=== PATIENT | male | born 1980 | race Two or more races ===

== ENCOUNTER 2016-06-26 12:04 | Emergency (ER) | payer OTHER ==
--- NOTE | 2016-06-26 13:33 | EDDOCDS ---
Physician Documentation [facility] Name: Marty Pitt Age: 35 yrs Sex: Male : 1980 Arrival Date: 06/26/2016 Time: 12:04 Bed TR4 Private MD: Pepper Daniels NP Disposition: 06/26/16 13:04 Discharged to Home/Self Care. Impression: Impacted cerumen, left ear. - Condition is Stable. - Discharge Instructions: Cerumen Impaction. - Medication Reconciliation, Local Pharmacy Hours form. - Follow up: Pepper Daniels; When: Call to arrange an appointment; Reason: Further diagnostic work-up, Recheck today's complaints, Continuance of care. - Problem is new. - Symptoms are unchanged. Historical: - Allergies: No known drug Allergies; - Home Meds: 1. none - PMHx: none; - PSHx: right kidney surgery; - Social history: Smoking status: Patient states former smoker of tobacco. No barriers to communication noted, The patient speaks fluent Colombian. - Family history: Not pertinent. - : The pt / caregiver states he / she is not on anticoagulants. Home medication list is obtained from the patient. - Exposure Risk Screening:: None identified. Vital Signs: 06/26 12:06 BP 159 / 89; Pulse 95; Resp 18 S; Temp 98.5(O); Pulse Ox 94% on R/A; Weight 99.79 kg / gr2 220 lbs (R); Height 5 ft. 7 in. (170.18 cm) (R); Pain 7/10; 13:10 BP 144 / 100; Pulse 89; Resp 18; Temp 98.9(TE); Pulse Ox 97% on R/A; Pain 0/10; mdr 12:06 Body Mass Index 34.46 (99.79 kg, 170.18 cm) gr2 MDM: 13:02 Financial registration complete. lg 13:11 [facility] Payment Agreement was scanned into [employer] and attached to record. lg Signatures: Eitan Matson RN RN dwg Jobson, Karen, RN RN kpj Ganter, LoriLee, Reg Reg lg Gary Montana PA PA btw The chart was reviewed and I authenticate all verbal orders and agree with the evaluation and treatment provided.Attachments: 13:11 [facility] Payment Agreement lg MTDD
--- NOTE | 2016-06-26 13:33 | EDDOCDS ---
Nurse's Notes [facility] Name: Marty Pitt Age: 35 yrs Sex: Male : 1980 Arrival Date: 06/26/2016 Time: 12:04 Bed TR4 Private MD: Pepper Daniels NP Diagnosis: Impacted cerumen, left ear Presentation: 06/26 12:11 Presenting complaint: Patient states: left ear ache x 3 days. Adult Sepsis Screening: [facility] The patient does not have new or worsening altered mentation. Patient's respiratory rate is less than 22. Systolic blood pressure is greater than 100. Patient has a qSOFA score of 0- Negative Sepsis Screen. Suicide/Homicide risk assessment- the patient denies having any suicidal and/or homicidal ideations and does not present with any other emotional, behavioral or mental health complaints. Status: Patient is not a food service associate or dependent. Transition of care: patient was not received from another setting of care. 12:11 Acuity: SIL Level 5 [facility] 12:11 Method Of Arrival: Walkin/Carried/Asstd [facility] Triage Assessment: 12:12 General: Appears in no apparent distress, Behavior is appropriate for age, pleasant. kpj Pain: Location: left ear Pain currently is 5 out of 10 on a pain scale. Pt Declines HIV testing. Neurological: Level of Consciousness is awake, alert, Oriented to person, place, time. EENT: Reports pain in left ear Pain is 5 out of 10 on a pain scale. Respiratory: Airway is patent Respiratory effort is even, unlabored. Derm: Skin is pink, warm & dry. Historical: - Allergies: No known drug Allergies; - Home Meds: 1. none - PMHx: none; - PSHx: right kidney surgery; - Social history: Smoking status: Patient states former smoker of tobacco. No barriers to communication noted, The patient speaks fluent Omani. - Family history: Not pertinent. - : The pt / caregiver states he / she is not on anticoagulants. Home medication list is obtained from the patient. - Exposure Risk Screening:: None identified. Screenin:27 Screening information is obtained from the patient. Primary language is Omani. Fall dwg risk: No risks identified. Assistance ADL's: requires no assistance with activities of daily living. Abuse/DV Screen: The patient / caregiver reports he/she is: not in a situation that causes fear, pain or injury. Nutritional screening: No deficits noted. Advance Directives: Currently, there is no health care proxy. There is no active DNR order. There is no living will. There is no Power of Configuration Management Advisor. Advance directive information has not previously been placed in an [facility] medical record. Further advance directive information is declined. home support is adequate. Assessment: 13:28 The patient / caregiver is instructed regarding the plan of care and ED course. [facility] Physical assessment to be completed by [facility]LENA/[facility]. Vital Signs: 12:06 BP 159 / 89; Pulse 95; Resp 18 S; Temp 98.5(O); Pulse Ox 94% on R/A; Weight 99.79 kg gr2 (R); Height 5 ft. 7 in. (170.18 cm) (R); Pain 7/10; 13:10 BP 144 / 100; Pulse 89; Resp 18; Temp 98.9(TE); Pulse Ox 97% on R/A; Pain 0/10; mdr 12:06 Body Mass Index 34.46 (99.79 kg, 170.18 cm) gr2 Vitals: 12:06 Log In Time: June 26, 2016 at 12:06. gr2 ED Course: 12:05 Patient visited by Paula Alvarenga. gr2 12:05 Pepper Daniels is Private Physician. gr2 12:05 Patient moved to Waiting gr2 12:10 Patient visited by Paula Alvarenga. gr2 12:10 Patient moved to Pre RCE gr2 12:12 Triage Initiated kpj 12:32 Patient moved to Triage 3 mdr 12:48 Gary Montana PA is PHCP. btw 12:48 Jacey Graff MD is Attending Physician. btw 12:48 Patient visited by Gary Montana PA. btw 13:04 Pepper Daniels is Referral Physician. btw 13:10 Patient name changed from Marty\S\\S\[place]\S\ to Marty\S\Ray\S\Sweetie. EDMS 13:11 Patient visited by Cristian Pedraza PCA. mdr 13:11 [facility] Payment Agreement was scanned into [employer] and attached to record. lg 13:14 Patient moved to TR4 mdr 13:31 Patient has correct armband on for positive identification. Bed in low position. [facility] 13:31 No IV's were initiated during this patient's visit. No procedures done that require dwg assistance. Order Results: There are currently no results for this order. Outcome: 13:04 Discharge ordered by Provider. btw 13:30 The following High Risk Discharge criteria are identified: None. Discharged to home dwg ambulatory, with family. Condition: good Condition: stable. No special radiology studies were completed. 13:31 Discharge Assessment: Patient awake, alert and oriented x 3. No cognitive and/or dwg functional deficits noted. Patient verbalized understanding of disposition instructions. patient administered narcotics - no. Property sent home with patient. 13:31 Patient left the ED. [facility] Signatures: Dispatcher [employer] EDEitan Fragoso, RN RN [facility] Marah Schmidt RN RN Valentino Hearn, Reg Reg lg Gary Montana PA PA btw Paula Alvarenga gr2 Cristian Pedraza PCA RESEARCH ARCHAEOLOGIST mdr MTDD
--- NOTE | 2016-06-28 14:32 | EDDOCDS ---
Physician Documentation [facility] Name: Marty Pitt Age: 35 yrs Sex: Male : 1980 Arrival Date: 06/26/2016 Time: 12:04 Bed TR4 Private MD: Pepper Daniels NP Disposition: 06/26/16 13:04 Discharged to Home/Self Care. Impression: Impacted cerumen, left ear. - Condition is Stable. - Discharge Instructions: Cerumen Impaction. - Medication Reconciliation, Local Pharmacy Hours form. - Follow up: Pepper Daniels; When: Call to arrange an appointment; Reason: Further diagnostic work-up, Recheck today's complaints, Continuance of care. - Problem is new. - Symptoms are unchanged. Historical: - Allergies: No known drug Allergies; - Home Meds: 1. none - PMHx: none; - PSHx: right kidney surgery; - Social history: Smoking status: Patient states former smoker of tobacco. No barriers to communication noted, The patient speaks fluent Icelandic. - Family history: Not pertinent. - : The pt / caregiver states he / she is not on anticoagulants. Home medication list is obtained from the patient. - Exposure Risk Screening:: None identified. Vital Signs: 06/26 12:06 BP 159 / 89; Pulse 95; Resp 18 S; Temp 98.5(O); Pulse Ox 94% on R/A; Weight 99.79 kg / gr2 220 lbs (R); Height 5 ft. 7 in. (170.18 cm) (R); Pain 7/10; 13:10 BP 144 / 100; Pulse 89; Resp 18; Temp 98.9(TE); Pulse Ox 97% on R/A; Pain 0/10; mdr 12:06 Body Mass Index 34.46 (99.79 kg, 170.18 cm) gr2 MDM: 13:02 Financial registration complete. lg 13:11 [facility] Payment Agreement was scanned into [employer] and attached to record. lg 15:04 T-Sheet-- Draft Copy was scanned into [employer] and attached to record. gb Signatures: Eitan Matson RN RN Marah Suarez RN RN kpj Barnhardt, Gloria, Reg Reg gb Valentino Fuentes, Reg Reg lg Gary Montana PA PA btw The chart was reviewed and I authenticate all verbal orders and agree with the evaluation and treatment provided.Attachments: 13:11 [facility] [place] [place] Payment Agreement lg 15:04 T-Sheet-- Draft Copy gb Chart Complete MTDD
--- NOTE | 2016-06-28 14:32 | EDDOCDS ---
Physician Documentation [facility] Name: Marty Pitt Age: 35 yrs Sex: Male : 1980 Arrival Date: 06/26/2016 Time: 12:04 Bed TR4 Private MD: Pepper Daniels NP Disposition: 06/26/16 13:04 Discharged to Home/Self Care. Impression: Impacted cerumen, left ear. - Condition is Stable. - Discharge Instructions: Cerumen Impaction. - Medication Reconciliation, Local Pharmacy Hours form. - Follow up: Pepper Daniels; When: Call to arrange an appointment; Reason: Further diagnostic work-up, Recheck today's complaints, Continuance of care. - Problem is new. - Symptoms are unchanged. Historical: - Allergies: No known drug Allergies; - Home Meds: 1. none - PMHx: none; - PSHx: right kidney surgery; - Social history: Smoking status: Patient states former smoker of tobacco. No barriers to communication noted, The patient speaks fluent Brazilian. - Family history: Not pertinent. - : The pt / caregiver states he / she is not on anticoagulants. Home medication list is obtained from the patient. - Exposure Risk Screening:: None identified. Vital Signs: 06/26 12:06 BP 159 / 89; Pulse 95; Resp 18 S; Temp 98.5(O); Pulse Ox 94% on R/A; Weight 99.79 kg / gr2 220 lbs (R); Height 5 ft. 7 in. (170.18 cm) (R); Pain 7/10; 13:10 BP 144 / 100; Pulse 89; Resp 18; Temp 98.9(TE); Pulse Ox 97% on R/A; Pain 0/10; mdr 12:06 Body Mass Index 34.46 (99.79 kg, 170.18 cm) gr2 MDM: 13:02 Financial registration complete. lg 13:11 [facility] Payment Agreement was scanned into [employer] and attached to record. lg 15:04 T-Sheet-- Draft Copy was scanned into [employer] and attached to record. gb Signatures: Eitan Matson RN RN Marah Suarez RN RN kpj Barnhardt, Gloria, Reg Reg gb Valentino Fuentes, Reg Reg lg Gary Montana PA PA btw The chart was reviewed and I authenticate all verbal orders and agree with the evaluation and treatment provided.Attachments: 13:11 [facility] [place] [facility] Payment Agreement lg 15:04 T-Sheet-- Draft Copy gb Chart Complete MTDD
--- NOTE | 2016-06-28 14:33 | EDDOCDS ---
Nurse's Notes [facility] Name: Marty Pitt Age: 35 yrs Sex: Male : 1980 Arrival Date: 06/26/2016 Time: 12:04 Bed TR4 Private MD: Pepper Daniels NP Diagnosis: Impacted cerumen, left ear Presentation: 06/26 12:11 Presenting complaint: Patient states: left ear ache x 3 days. Adult Sepsis Screening: [facility] The patient does not have new or worsening altered mentation. Patient's respiratory rate is less than 22. Systolic blood pressure is greater than 100. Patient has a qSOFA score of 0- Negative Sepsis Screen. Suicide/Homicide risk assessment- the patient denies having any suicidal and/or homicidal ideations and does not present with any other emotional, behavioral or mental health complaints. Status: Patient is not a family services worker or dependent. Transition of care: patient was not received from another setting of care. 12:11 Acuity: SIL Level 5 [facility] 12:11 Method Of Arrival: Walkin/Carried/Asstd [facility] Triage Assessment: 12:12 General: Appears in no apparent distress, Behavior is appropriate for age, pleasant. kpj Pain: Location: left ear Pain currently is 5 out of 10 on a pain scale. Pt Declines HIV testing. Neurological: Level of Consciousness is awake, alert, Oriented to person, place, time. EENT: Reports pain in left ear Pain is 5 out of 10 on a pain scale. Respiratory: Airway is patent Respiratory effort is even, unlabored. Derm: Skin is pink, warm & dry. Historical: - Allergies: No known drug Allergies; - Home Meds: 1. none - PMHx: none; - PSHx: right kidney surgery; - Social history: Smoking status: Patient states former smoker of tobacco. No barriers to communication noted, The patient speaks fluent [place]. - Family history: Not pertinent. - : The pt / caregiver states he / she is not on anticoagulants. Home medication list is obtained from the patient. - Exposure Risk Screening:: None identified. Screenin:27 Screening information is obtained from the patient. Primary language is [place]. Fall dwg risk: No risks identified. Assistance ADL's: requires no assistance with activities of daily living. Abuse/DV Screen: The patient / caregiver reports he/she is: not in a situation that causes fear, pain or injury. Nutritional screening: No deficits noted. Advance Directives: Currently, there is no health care proxy. There is no active DNR order. There is no living will. There is no Power of Nurse'S Aides Teacher. Advance directive information has not previously been placed in an [facility] medical record. Further advance directive information is declined. home support is adequate. Assessment: 13:28 The patient / caregiver is instructed regarding the plan of care and ED course. [facility] Physical assessment to be completed by [facility]LENA/[facility]. Vital Signs: 12:06 BP 159 / 89; Pulse 95; Resp 18 S; Temp 98.5(O); Pulse Ox 94% on R/A; Weight 99.79 kg gr2 (R); Height 5 ft. 7 in. (170.18 cm) (R); Pain 7/10; 13:10 BP 144 / 100; Pulse 89; Resp 18; Temp 98.9(TE); Pulse Ox 97% on R/A; Pain 0/10; mdr 12:06 Body Mass Index 34.46 (99.79 kg, 170.18 cm) gr2 Vitals: 12:06 Log In Time: June 26, 2016 at 12:06. gr2 ED Course: 12:05 Patient visited by Paula Alvarenga. gr2 12:05 Pepper Daniels is Private Physician. gr2 12:05 Patient moved to Waiting gr2 12:10 Patient visited by Paula Alvarenga. gr2 12:10 Patient moved to Pre RCE gr2 12:12 Triage Initiated kpj 12:32 Patient moved to Triage 3 mdr 12:48 Gary Montana PA is PHCP. btw 12:48 Jacey Graff MD is Attending Physician. btw 12:48 Patient visited by Gary Montana PA. btw 13:04 Pepper Daniels is Referral Physician. btw 13:10 Patient name changed from Marty\S\\S\[place]\S\ to Marty\S\Ray\S\Sweetie. EDMS 13:11 Patient visited by Cristian Pedraza PCA. mdr 13:11 [facility] Payment Agreement was scanned into [employer] and attached to record. lg 13:14 Patient moved to TR4 mdr 13:31 Patient has correct armband on for positive identification. Bed in low position. dwg 13:31 No IV's were initiated during this patient's visit. No procedures done that require dwg assistance. 15:04 T-Sheet-- Draft Copy was scanned into [employer] and attached to record. Order Results: There are currently no results for this order. Outcome: 13:04 Discharge ordered by Provider. btw 13:30 The following High Risk Discharge criteria are identified: None. Discharged to home dwg ambulatory, with family. Condition: good Condition: stable. No special radiology studies were completed. 13:31 Discharge Assessment: Patient awake, alert and oriented x 3. No cognitive and/or dwg functional deficits noted. Patient verbalized understanding of disposition instructions. patient administered narcotics - no. Property sent home with patient. 13:31 Patient left the ED. dwg Signatures: Dispatcher [employer] EDMS Eitan Matson, RN RN dwg Marah Schmidt RN RN Mechelle Purcell, Reg Reg gb Valentino Fuentes, Reg Reg lg Gary Montana PA PA btw Paula Alvarenga gr2 Cristian Pedraza, ZACK SENIOR MARKETING ASSOCIATE mdr Chart Complete MTDD
== END 2016-06-26 13:31 | disposition home or self-care (01) ==
LOC: M ED 12:04
DX: H61.22 Impacted cerumen, left ear (principal); Z87.891 Personal history of nicotine dependence

== ENCOUNTER → 2016-07-09 | Outpatient (REF) | payer OTHER ==
[2016-07-09 12:44] LABS: BASO % 0.3 % (0.0-1.0); EOS # 0.2 K/mm3 (0.0-0.50); EOS % 2.8 % (0.0-3.0); LARGE UNSTAINED CELL # 0.2 K/mm3 (0.0-0.4); LARGE UNSTAINED CELL % 2.3 % (0.0-4.0); LYMPH # 1.2 K/mm3 (1.5-4.5); MEAN CORPUSCULAR HEMOGLOBIN 30.9 pg (27.0-33.0); MEAN CORPUSCULAR HGB CONC 34.7 g/dl (32.0-36.5); MEAN CORPUSCULAR VOLUME 89.1 fl (80.0-96.0); MONO # 0.5 K/mm3 (0.0-0.8); MONO % 6.9 % (0.0-5.0); NEUTROPHILS # 5.1 K/mm3 (1.8-7.7); NEUTROPHILS % 70.8 % (36.0-66.0); PLATELET COUNT, AUTOMATED 146 k/mm3 (150-450); RED CELL DISTRIBUTION WIDTH 12.9 % (11.5-14.5); WHITE BLOOD COUNT 7.2 K/mm3 (4.0-10.0)
[2016-07-09 12:46] LABS: ALBUMIN/GLOBULIN RATIO 1.08 (1.00-1.93); ALKALINE PHOSPHATASE 86 U/L (45-117); ALT/SGPT 41 U/L (12-78); ANION GAP 7 MEQ/L (8-16); AST/SGOT 18 U/L (15-37); BILIRUBIN,TOTAL 0.7 MG/DL (0.2-1.0); BLOOD UREA NITROGEN 11 MG/DL (7-18); CALCIUM LEVEL 9.5 MG/DL (8.5-10.1); CARBON DIOXIDE LEVEL 31 MEQ/L (21-32); CHLORIDE LEVEL 100 MEQ/L (98-107); CHOLESTEROL LEVEL 203 MG/DL (<200); CREATININE FOR GFR 1.02 MG/DL (0.70-1.30); GLOMERULAR FILTRATION RATE > 60.0 (>60); GLUCOSE, FASTING 96 MG/DL (70-105); SODIUM LEVEL 138 MEQ/L (136-145); TOTAL PROTEIN 7.7 GM/DL (6.4-8.2); TRIGLYCERIDES LEVEL 125 MG/DL (<150)
== END ==
LOC: M SFHCADAM 08:04
PROVIDERS: ATTEND Family Medicine
DX: Z00.00 Encounter for general adult medical examination without abnormal findings (principal)

== ENCOUNTER → 2016-08-13 | Outpatient (CLI) | payer OTHER ==
--- NOTE | 2016-08-13 08:12 | REP ---
Clinical: Acute abdominal pain. Technique: Live scale ultrasound using curved array transducer. Findings: The liver and pancreas are normal in contour, size, and echogenicity without focal hepatic or pancreatic lesions identified. The gallbladder is normal without gallstones, wall thickening or pericholecystic fluid. No biliary ductal dilatation is appreciated, and the common bile duct measures 3.2 mm diameter. The patient is noted to be status post right nephrectomy. No fluid or mass in the right renal fossa. No ascites. Visualized portions of the abdominal aorta normal. Impression: Normal right upper quadrant and gallbladder abdominal ultrasound. Evidence of prior right nephrectomy. Signed by Darrian Funez MD 08/13/2016 08:03 A
== END ==
LOC: M RAD 07:13
PROVIDERS: ATTEND Family Medicine
DX: R10.11 Right upper quadrant pain (principal)

== ENCOUNTER 2018-09-04 23:00 | Emergency (ER) | payer OTHER ==
[~2018-09-04] VITALS: Ht 170.2 cm; Wt 106.8 kg
[2018-09-04] MEDS ORDERED: FAMOTIDINE IV BAG 20 MG in APPROPRIATE DILUENT 1 EA IV ONE (23:30)
[2018-09-04] MEDS ORDERED: methylPREDNISolone INJ 125 MG/2 ML VIAL (J2930) IV ONE (23:30)
[2018-09-05] MEDS ORDERED: PEPC1TAB5 PO (00:26)
[2018-09-05] MEDS ORDERED: PRED20TA PO (00:26)
[2018-09-05] MEDS ORDERED: DIPH25CA PO (00:26)
[2018-09-05 00:27] VITALS: BP 141/90
== END 2018-09-05 00:33 | disposition home or self-care (01) ==
LOC: EDUNIT# 23:00 → EDBD 23:00 → M ED 23:00
DX: L50.9 Urticaria, unspecified (principal)
CPT/HCPCS: 96374; 96375; 99284; J2930

== ENCOUNTER 2018-09-09 | Emergency (ER) | payer OTHER ==
[~2018-09-09] VITALS: Ht 170.2 cm; Wt 109.5 kg
[~2018-09-09] MED LIST: DIPH25CA PO; PEPC1TAB5 PO; PRED20TA PO
[2018-09-09] MEDS ORDERED: FAMOTIDINE 20 MG TAB PO ONE (00:45)
[2018-09-09] MEDS ORDERED: predniSONE 20 MG TAB PO ONE (00:45)
[2018-09-09 01:13] VITALS: BP 144/90
[2018-09-09] MEDS ORDERED: PRED20TA PO (01:24)
== END 2018-09-09 01:36 | disposition home or self-care (01) ==
LOC: M ED
DX: L50.9 Urticaria, unspecified (principal); F17.210 Nicotine dependence, cigarettes, uncomplicated; Z90.5 Acquired absence of kidney

== ENCOUNTER 2018-09-10 23:22 | Emergency (ER) | payer OTHER ==
[~2018-09-10] VITALS: Ht 170.2 cm; Wt 109.5 kg
[2018-09-10 23:23] VITALS: BP 175/88
[2018-09-11] MEDS ORDERED: predniSONE 20 MG TAB PO ONE (00:15)
[2018-09-11] MEDS ORDERED: FAMOTIDINE 20 MG TAB PO ONE (00:15)
[2018-09-11] MEDS ORDERED: PEPC1TAB5 PO (00:15)
[2018-09-11] MEDS ORDERED: DIPH25CA PO (00:26)
== END 2018-09-11 00:30 | disposition home or self-care (01) ==
LOC: M ED 23:22
DX: L50.9 Urticaria, unspecified (principal); Z72.0 Tobacco use

== ENCOUNTER → 2018-09-13 | Outpatient (REF) | payer OTHER ==
[2018-09-13 12:40] LABS: BASO % 0.1 % (0.0-1.0); EOS % 0.3 % (0.0-3.0); HEMOGLOBIN 17.3 g/dl (13.5-17.5); LYMPH # 2.7 10^3/uL (1.5-4.5); LYMPH % 20.3 % (24.0-44.0); MEAN CORPUSCULAR HEMOGLOBIN 30.5 pg (27.0-33.0); MEAN CORPUSCULAR HGB CONC 33.9 g/dl (32.0-36.5); MEAN CORPUSCULAR VOLUME 89.9 fl (80.0-96.0); MONO # 1.2 10^3/uL (0.0-0.8); MONO % 8.8 % (0.0-5.0); NEUTROPHILS # 9.3 10^3/uL (1.8-7.7); NEUTROPHILS % 69.8 % (36.0-66.0); PLATELET COUNT, AUTOMATED 193 10^3/uL (150-450); RED BLOOD COUNT 5.67 10^6/uL (4.30-6.10); WHITE BLOOD COUNT 13.4 10^3/uL (4.0-10.0)
[2018-09-13 12:59] LABS: ALBUMIN 3.8 GM/DL (3.2-5.2); ALT/SGPT 58 U/L (12-78); BILIRUBIN,TOTAL 0.4 MG/DL (0.2-1.0); BLOOD UREA NITROGEN 15 MG/DL (7-18); CALCIUM LEVEL 9.5 MG/DL (8.5-10.1); CARBON DIOXIDE LEVEL 30 MEQ/L (21-32); CHLORIDE LEVEL 101 MEQ/L (98-107); CHOLESTEROL LEVEL 184 MG/DL (<200); CHOLESTEROL RISK RATIO 3.066 (<5); FREE T4 0.93 NG/DL (0.76-1.46); GLOMERULAR FILTRATION RATE > 60.0 (>60); GLUCOSE, FASTING 120 MG/DL (70-100); HDL CHOLESTEROL 60 MG/DL (>40); LDL CHOLESTEROL 90 MG/DL (<100); NON-HDL-C 124 MG/DL; POTASSIUM SERUM 4.1 MEQ/L (3.5-5.1); SODIUM LEVEL 136 MEQ/L (136-145); TOTAL PROTEIN 7.5 GM/DL (6.4-8.2); TRIGLYCERIDES LEVEL 169 MG/DL (<150)
== END ==
LOC: M SFHCADAM 09:36
PROVIDERS: ATTEND Family Medicine
DX: Z00.00 Encounter for general adult medical examination without abnormal findings (principal)

== ENCOUNTER 2022-11-03 17:10 | Emergency (ER) | payer OTHER ==
[~2022-11-03] VITALS: Ht 170.2 cm; Wt 98.8 kg
[~2022-11-03 17:10] MED LIST changes: +DIPH-435 PO; -DIPH25CA PO
[2022-11-03 19:21] LABS: BASO % 0.5 % (0.0-1.0); EOS # 0.1 10^3/uL (0.0-0.5); EOS % 1.2 % (0.0-3.0); HEMATOCRIT 47.8 % (42.0-52.0); HEMOGLOBIN 16.1 g/dl (13.5-17.5); LYMPH # 1.4 10^3/uL (1.5-5.0); MEAN CORPUSCULAR HEMOGLOBIN 30.3 pg (27.0-33.0); MEAN CORPUSCULAR HGB CONC 33.7 g/dl (32.0-36.5); MONO # 0.5 10^3/uL (0.0-0.8); MONO % 6.1 % (2.0-8.0); NEUTROPHILS # 6.1 10^3/uL (1.5-8.5); NEUTROPHILS % 74.8 % (36.0-66.0); PLATELET COUNT, AUTOMATED 188 10^3/uL (150-450); RED BLOOD COUNT 5.31 10^6/uL (4.30-6.10); WHITE BLOOD COUNT 8.2 10^3/uL (4.0-10.0)
[2022-11-03 19:32] LABS: LIPASE 37 U/L (12-53)
[2022-11-03 19:34] LABS: ALBUMIN 3.8 G/DL (3.2-5.2); ALKALINE PHOSPHATASE 152 U/L (46-116); ALT/SGPT 114 U/L (7.0-40); AST/SGOT 56 U/L (<34); BILIRUBIN,DIRECT 0.2 MG/DL (<0.4); BILIRUBIN,TOTAL 0.7 MG/DL (0.3-1.2); BLOOD UREA NITROGEN 16 MG/DL (9-23); CALCIUM LEVEL 9.2 MG/DL (8.5-10.1); CARBON DIOXIDE LEVEL 26 MMOL/L (20-31); CHLORIDE LEVEL 105 MMOL/L (98-107); CREATININE FOR GFR 0.96 MG/DL (0.70-1.30); GLOMERULAR FILTRATION RATE > 60.0 (>60); GLUCOSE, FASTING 105 MG/DL (60-100); POTASSIUM SERUM 4.2 MMOL/L (3.5-5.1); SODIUM LEVEL 141 MMOL/L (136-145); TOTAL PROTEIN 6.8 G/DL (5.7-8.2)
[2022-11-03 19:35] LABS: CK-MB VALUE MASS 1.3 NG/ML (<3.6)
[2022-11-03 19:40] LABS: THYROID STIMULATING HORMONE 1.103 uIU/ML (0.55-4.78)
[2022-11-03 19:43] LABS: CPK CREATINE PHOSPHOKINASE 151 U/L (46-171); MB/CK RELATIVE INDEX 0.86 (< OR =4)
[2022-11-03 19:44] LABS: INR 0.96; PARTIAL THROMBOPLASTIN TIME 26.9 SECONDS (24.8-34.2)
[2022-11-03 20:32] VITALS: TEMP 98
[2022-11-03 21:32] VITALS: O2SAT 97
[2022-11-03 21:34] VITALS: BP 158/97
== END 2022-11-03 21:49 | disposition home or self-care (01) ==
LOC: M ED 17:10
DX: R07.89 Other chest pain (principal); Z79.899 Other long term (current) drug therapy

== ENCOUNTER 2023-01-06 13:40 | Emergency (ER) | payer OTHER ==
[~2023-01-06] VITALS: Ht 172.7 cm; Wt 106.8 kg
[2023-01-06 17:45] LABS: BASO # 0.1 10^3/uL (0.0-0.2); BASO % 0.6 % (0.0-1.0); EOS # 0.2 10^3/uL (0.0-0.5); EOS % 2.9 % (0.0-3.0); HEMATOCRIT 48.3 % (42.0-52.0); HEMOGLOBIN 16.1 g/dl (13.5-17.5); LYMPH # 2.3 10^3/uL (1.5-5.0); LYMPH % 28.9 % (24.0-44.0); MEAN CORPUSCULAR HEMOGLOBIN 30.6 pg (27.0-33.0); MEAN CORPUSCULAR HGB CONC 33.3 g/dl (32.0-36.5); MEAN CORPUSCULAR VOLUME 91.8 fl (80.0-96.0); MONO # 0.5 10^3/uL (0.0-0.8); MONO % 6.8 % (2.0-8.0); NEUTROPHILS # 4.7 10^3/uL (1.5-8.5); NEUTROPHILS % 60.4 % (36.0-66.0); PLATELET COUNT, AUTOMATED 194 10^3/uL (150-450); RED BLOOD COUNT 5.26 10^6/uL (4.30-6.10); WHITE BLOOD COUNT 7.8 10^3/uL (4.0-10.0)
[2023-01-06 18:03] LABS: LIPASE 54 U/L (12-53)
[2023-01-06 18:05] LABS: ALBUMIN 3.8 G/DL (3.2-5.2); ALKALINE PHOSPHATASE 160 U/L (46-116); ALT/SGPT 88 U/L (7.0-40); AST/SGOT 35 U/L (<34); BILIRUBIN,DIRECT 0.2 MG/DL (<0.4); BILIRUBIN,TOTAL 0.6 MG/DL (0.3-1.2); BLOOD UREA NITROGEN 12 MG/DL (9-23); CALCIUM LEVEL 9.3 MG/DL (8.5-10.1); CARBON DIOXIDE LEVEL 29 MMOL/L (20-31); CHLORIDE LEVEL 104 MMOL/L (98-107); CREATININE FOR GFR 0.92 MG/DL (0.70-1.30); GLOMERULAR FILTRATION RATE > 60.0 (>60); GLUCOSE, FASTING 95 MG/DL (60-100); POTASSIUM SERUM 4.6 MMOL/L (3.5-5.1); SODIUM LEVEL 140 MMOL/L (136-145); TOTAL PROTEIN 7.2 G/DL (5.7-8.2)
[2023-01-06 19:27] VITALS: BP 124/70; TEMP 98; O2SAT 99
== END 2023-01-06 19:28 | disposition home or self-care (01) ==
LOC: M ED 13:40
DX: I49.3 Ventricular premature depolarization (principal); R53.83 Other fatigue; F17.290 Nicotine dependence, other tobacco product, uncomplicated; F17.200 Nicotine dependence, unspecified, uncomplicated

== ENCOUNTER 2023-01-09 16:19 | Emergency (ER) | payer OTHER ==
[~2023-01-09] VITALS: Ht 170.2 cm; Wt 97.5 kg
[2023-01-09 16:20] VITALS: BP 145/82; TEMP 99.5; O2SAT 97
== END 2023-01-09 21:14 | disposition left against medical advice (07) ==
LOC: M ED 16:19
DX: Z53.21 Procedure and treatment not carried out due to patient leaving prior to being seen by health care provider (principal)

== ENCOUNTER 2023-01-27 16:38 | Emergency (ER) | payer OTHER ==
[~2023-01-27] VITALS: Ht 170.2 cm; Wt 96.8 kg
[2023-01-27 17:22] LABS: BASO % 0.4 % (0.0-1.0); EOS # 0.2 10^3/uL (0.0-0.5); EOS % 2.2 % (0.0-3.0); HEMATOCRIT 46.8 % (42.0-52.0); LYMPH # 2.2 10^3/uL (1.5-5.0); LYMPH % 23.2 % (24.0-44.0); MEAN CORPUSCULAR HEMOGLOBIN 30.5 pg (27.0-33.0); MEAN CORPUSCULAR HGB CONC 34.2 g/dl (32.0-36.5); MEAN CORPUSCULAR VOLUME 89.1 fl (80.0-96.0); MONO # 0.6 10^3/uL (0.0-0.8); NEUTROPHILS # 6.4 10^3/uL (1.5-8.5); NEUTROPHILS % 67.9 % (36.0-66.0); PLATELET COUNT, AUTOMATED 193 10^3/uL (150-450); RED BLOOD COUNT 5.25 10^6/uL (4.30-6.10); WHITE BLOOD COUNT 9.4 10^3/uL (4.0-10.0)
[2023-01-27 17:44] LABS: CK-MB VALUE MASS < 1.0 NG/ML (<3.6)
[2023-01-27 17:45] LABS: BLOOD UREA NITROGEN 13 MG/DL (9-23); CALCIUM LEVEL 9.5 MG/DL (8.5-10.1); CARBON DIOXIDE LEVEL 29 MMOL/L (20-31); CHLORIDE LEVEL 104 MMOL/L (98-107); CPK CREATINE PHOSPHOKINASE 106 U/L (46-171); CREATININE FOR GFR 0.96 MG/DL (0.70-1.30); GLOMERULAR FILTRATION RATE > 60.0 (>60); GLUCOSE, FASTING 92 MG/DL (60-100); MB/CK RELATIVE INDEX 0.94 (< OR =4); POTASSIUM SERUM 3.9 MMOL/L (3.5-5.1); SODIUM LEVEL 142 MMOL/L (136-145)
[2023-01-27] MEDS ORDERED: KETOROLAC 30 MG/ML 1ML VIAL IV ONE (18:35)
[2023-01-27 19:00] LABS: CK-MB VALUE MASS < 1.0 NG/ML (<3.6)
[2023-01-27 19:08] LABS: CPK CREATINE PHOSPHOKINASE 99 U/L (46-171); MB/CK RELATIVE INDEX 1.01 (< OR =4)
[2023-01-27] MEDS ORDERED: NAPR-837 PO (19:51)
[2023-01-27 19:59] VITALS: BP 150/86; TEMP 98; O2SAT 99
== END 2023-01-27 20:00 | disposition home or self-care (01) ==
LOC: M ED 16:38 → EDBD 16:38 → M ED 20:00
DX: R07.9 Chest pain, unspecified (principal); F17.200 Nicotine dependence, unspecified, uncomplicated; Z79.1 Long term (current) use of non-steroidal anti-inflammatories (NSAID)
CPT/HCPCS: 71045; 80048; 82550; 82553; 85025; 93005; 93041; 94760; 96374; 99284; J1885

== ENCOUNTER → 2023-07-01 | Outpatient (REF) | payer OTHER ==
[~2023-07-01] MED LIST changes: +NAPR-837 PO
[2023-07-01 14:31] LABS: HEMATOCRIT 50.3 % (42.0-52.0); HEMOGLOBIN 17.4 g/dl (13.5-17.5); MEAN CORPUSCULAR HGB CONC 34.6 g/dl (32.0-36.5); MEAN CORPUSCULAR VOLUME 89.7 fl (80.0-96.0); PLATELET COUNT, AUTOMATED 192 10^3/uL (150-450); RED BLOOD COUNT 5.61 10^6/uL (4.30-6.10); WHITE BLOOD COUNT 8.7 10^3/uL (4.0-10.0)
[2023-07-01 15:04] LABS: HEMOGLOBIN A1c 5.4 % (4.0-6.0)
[2023-07-01 15:09] LABS: ALKALINE PHOSPHATASE 79 U/L (46-116); ALT/SGPT 46 U/L (7.0-40); AST/SGOT 16 U/L (<34); BILIRUBIN,TOTAL 0.5 MG/DL (0.3-1.2); BLOOD UREA NITROGEN 16 MG/DL (9-23); CALCIUM LEVEL 9.4 MG/DL (8.5-10.1); CARBON DIOXIDE LEVEL 28 MMOL/L (20-31); CHLORIDE LEVEL 103 MMOL/L (98-107); CHOLESTEROL LEVEL 190 MG/DL (<200); CHOLESTEROL RISK RATIO 3.67 (<5); CREATININE FOR GFR 0.95 MG/DL (0.70-1.30); GLOMERULAR FILTRATION RATE > 60.0 (>60); GLUCOSE, FASTING 85 MG/DL (60-100); HDL CHOLESTEROL 51.7 MG/DL (>40); LDL CHOLESTEROL 103.1 MG/DL (<100); NON-HDL-C 138.3 MG/DL; POTASSIUM SERUM 4.8 MMOL/L (3.5-5.1); SODIUM LEVEL 136 MMOL/L (136-145); THYROID STIMULATING HORMONE 1.426 uIU/ML (0.55-4.78); TOTAL 25(OH) VITAMIN D 22.5 NG/ML (20.0-100.0); TOTAL PROTEIN 6.9 G/DL (5.7-8.2); TRIGLYCERIDES LEVEL 176 MG/DL (<150)
== END ==
LOC: M LAB REF 11:54
PROVIDERS: ATTEND Nurse Practitioner Family
DX: E66.9 Obesity, unspecified (principal)

== ENCOUNTER → 2023-10-26 | Outpatient (REF) | payer OTHER ==
[2023-10-26 13:48] LABS: CHOLESTEROL RISK RATIO 3.63 (<5); LDL CHOLESTEROL 96.8 MG/DL (<100)
== END ==
LOC: M LAB REF 12:37
PROVIDERS: ATTEND Nurse Practitioner Family
DX: R79.89 Other specified abnormal findings of blood chemistry (principal)

== ENCOUNTER → 2024-03-02 | Outpatient (REF) | payer OTHER, SELFPAY ==
[2024-03-02 19:05] LABS: CHOLESTEROL RISK RATIO 5.18 (<5); HDL CHOLESTEROL 43.2 MG/DL (>40); LDL CHOLESTEROL 144.2 MG/DL (<100); NON-HDL-C 180.8 MG/DL
== END ==
LOC: M LAB REF 16:26
PROVIDERS: ATTEND Nurse Practitioner Family
DX: R79.89 Other specified abnormal findings of blood chemistry (principal)